=== PATIENT | female | born 1970 | race African-American/Black ===

== ENCOUNTER 2017-06-11 18:09 | Inpatient (IN) | payer OTHER ==
[~2017-06-11] VITALS: Ht 162.6 cm; Wt 100.7 kg
[2017-06-11] MEDS ORDERED: METH40TA (18:20)
[2017-06-11] MEDS ORDERED: LISI5TAB45 (18:20)
--- NOTE | 2017-06-11 18:20 | NUR ---
AAOX3, CAME TO ER C/O MIDSTERNAL NON RADIATING CHEST PAIN, SUDDEN ONSET AROUND 2 PM TODAY. SKIN IS WARM AND DRY. RESP IS EVEN AND UNLABORED WITH NAD NOTED. DR VELÁZQUEZ AT BS FOR EVAL. PLACED ON MONITOR. WILL CONTINUOUSLY MONITOR THE PATIENT.
[2017-06-11] MEDS ORDERED: ONDANSETRON HCL/PF 4 MG/2 ML VIAL ONE (18:49)
[2017-06-11] MEDS ORDERED: MORPHINE SULFATE INJ 4 MG/ML DISP.SYRIN ONE ×2 (18:50→20:03)
[2017-06-11] MEDS ORDERED: ASPIRIN 81 MG TAB.CHEW ONE (18:50)
[2017-06-11 18:52] LABS: RED BLOOD CELL COUNT(AUTO) 4.08 MIL/uL (4.0-5.2)
[2017-06-11 18:54] LABS: BASOPHILS # (AUTO) 0.3 /CMM (0.0-0.2); BASOPHILS % (AUTO) 2.5 % (0.0-2.0); EOSINOPHILS % (AUTO) 0.1 % (0.0-6.0); HEMATOCRIT 39 % (33-45); HEMOGLOBIN 13.1 g/dL (11.5-14.8); LYMPHOCYTES # (AUTO) 2.1 /CMM (0.8-4.8); LYMPHOCYTES % (AUTO) 16.7 % (20.0-44.0); MEAN CORPUSCULAR HEMOGLOBIN 32 PG (26.0-33.0); MEAN CORPUSCULAR HGB CONC 34 g/dl (31.0-36.0); MEAN CORPUSCULAR VOLUME 95 fL (82-100); MONOCYTES # (AUTO) 0.5 /CMM (0.1-1.30); NEUTROPHILS # (AUTO) 9.7 /CMM (1.8-8.9); NEUTROPHILS % (AUTO) 76.7 % (43.0-81.0); PLATELET COUNT (AUTO) 265 /CMM (150-450); RDW COEFFICIENT OF VARIATION 13.2 (11.5-15.0); WHITE BLOOD COUNT (AUTO) 12.6 K/uL (4.3-11.0)
[2017-06-11] MEDS ORDERED: ASPIRIN 81 MG TAB.CHEW PO ONE (19:00)
[2017-06-11] MEDS ORDERED: ONDANSETRON HCL/PF 4 MG/2 ML VIAL IVP ONE (19:00)
[2017-06-11] MEDS ORDERED: MORPHINE SULFATE INJ 2 MG/ML DISP.SYRIN IV ONE ×2 (19:00→20:00)
[2017-06-11 19:04] LABS: CALCIUM, SERUM 9.3 mg/dL (8.5-10.1); CREATININE 1.5 mg/dL (0.6-1.3); POTASSIUM 4.3 mmol/L (3.5-5.1)
[2017-06-11 19:09] LABS: PROTHROMBIN TIME 10.4 SECS (9.5-12.7)
--- NOTE | 2017-06-11 19:10 | NUR ---
RECEIVED REPORT FROM BESSIE SUAREZ FOR JUAN. PT APPEARS TO BE COMFORTABLE AT THIS TIME.
--- NOTE | 2017-06-11 19:30 | NUR ---
CALLED RADIOLOGY FOR F/U CXRAY
[2017-06-11 19:32] LABS: TROPONIN I 0.43 ng/mL (0.00-0.056)
--- NOTE | 2017-06-11 19:41 | NUR ---
RADIOLOGY AT BEDSIDE FOR CXR
[2017-06-11] MEDS ORDERED: NTG 50 MG/D5W250 ML BOTTL 250 ML IV ONE ×2 (20:00→20:03)
--- NOTE | 2017-06-11 20:15 | NUR ---
ASSIGNED TELE BED 311-1
--- NOTE | 2017-06-11 20:20 | NUR ---
CALLED HOUSE SUP FOR ICU BED.
--- NOTE | 2017-06-11 20:38 | NUR ---
ASSIGNED ICU BED 256
--- NOTE | 2017-06-11 20:58 | NUR ---
REPORT GIVEN TO CLINIC COORDINATOR FOR ICU BED 256
[2017-06-11] MEDS ORDERED: ENOXAPARIN SODIUM 100 MG/ML DISP.SYRIN SQ SCH (21:30)
[2017-06-11] MEDS ORDERED: ZOLPIDEM TARTRATE 5 MG TABLET PO PRN (21:30)
[2017-06-11] MEDS ORDERED: Z GUARD REMEDY 2 OZ OINT TP PRN (21:30)
[2017-06-11] MEDS ORDERED: ONDANSETRON HCL/PF 4 MG/2 ML VIAL IVP PRN (21:30)
[2017-06-11] MEDS ORDERED: MORPHINE SULFATE INJ 2 MG/ML DISP.SYRIN IV PRN (21:30)
[2017-06-11] MEDS ORDERED: NITROPRUSSIDE SODIUM 50 MG in IV D5W 250 ML IV PRN (21:30)
[2017-06-11] MEDS ORDERED: ACETAMINOPHEN 325 MG TABLET PO PRN (21:30)
[2017-06-11 21:31] VITALS: BP 102/75
[2017-06-11 22:04] VITALS: BP 159/102
[2017-06-11 22:30] VITALS: BP 165/112
[2017-06-11] MEDS ORDERED: QUETIAPINE FUMARATE 100 MG TABLET PO SCH (22:30)
[2017-06-11] MEDS ORDERED: ENOXAPARIN SODIUM 100 MG/ML DISP.SYRIN SQ ONE (22:53)
[2017-06-11] MEDS ORDERED: QUETIAPINE FUMARATE 100 MG TABLET ONE (22:53)
[2017-06-11 23:11] VITALS: BP 150/106
[2017-06-11] MEDS ORDERED: NTG 50 MG/D5W250 ML BOTTL 250 ML IV PRN (23:30)
[2017-06-12] VITALS (25 sets, daily range): BP systolic 108–140; BP diastolic 17–89
--- NOTE | 2017-06-12 00:11 | NUR ---
PATIENT IS REFUSING 06/11/172115 EKG ORDER. DOESN'T WANT TO BE BOTHERED. [employer] NOTIFIED.
[2017-06-12] MEDS ORDERED: MORPHINE SULFATE INJ 2 MG/ML DISP.SYRIN IV PRN (01:30)
[2017-06-12 04:45] LABS: BASOPHILS % (AUTO) 0.2 % (0.0-2.0); EOSINOPHILS # (AUTO) 0.1 /CMM (0.0-0.7); EOSINOPHILS % (AUTO) 1.3 % (0.0-6.0); HEMATOCRIT 35 % (33-45); HEMOGLOBIN 11.4 g/dL (11.5-14.8); LYMPHOCYTES % (AUTO) 29.9 % (20.0-44.0); MEAN CORPUSCULAR HEMOGLOBIN 32 PG (26.0-33.0); MEAN CORPUSCULAR HGB CONC 33 g/dl (31.0-36.0); MEAN CORPUSCULAR VOLUME 96 fL (82-100); MONOCYTES # (AUTO) 0.6 /CMM (0.1-1.30); NEUTROPHILS # (AUTO) 6.4 /CMM (1.8-8.9); NEUTROPHILS % (AUTO) 62.6 % (43.0-81.0); PLATELET COUNT (AUTO) 211 /CMM (150-450); RDW COEFFICIENT OF VARIATION 14.1 (11.5-15.0); RED BLOOD CELL COUNT(AUTO) 3.59 MIL/uL (4.0-5.2); WHITE BLOOD COUNT (AUTO) 10.2 K/uL (4.3-11.0)
[2017-06-12 04:59] LABS: ALBUMIN 3.2 g/dL (3.4-5.0); BILIRUBIN,TOTAL 0.3 mg/dL (0.2-1.0); CALCIUM, SERUM 8.6 mg/dL (8.5-10.1); CREATININE 1.2 mg/dL (0.6-1.3); MAGNESIUM 2.1 mg/dL (1.8-2.4); PHOSPHORUS 3.3 mg/dL (2.5-4.9); POTASSIUM 4.8 mmol/L (3.5-5.1); TOTAL PROTEIN, SERUM 7.5 g/dL (6.4-8.2)
[2017-06-12 05:19] LABS: THYROID STIMULATING HORMONE 0.431 uIU/mL (0.358-3.74)
--- NOTE | 2017-06-12 05:20 | NUR ---
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 C/O MIDSTERNAL CHEST PAIN WITHOUT ANY RADIATION. CHEST PAIN IS MILD 2/10.PT IS AWAKE, ALERT, ORIENTED, BUT NONCOMPLIANT, UNCOOPERATIVE AND ANXIOUS AT TIMES. PT IS ON O2 2L VIA N/C. LUNGS CLEAR. SCOPE-SR. REMAINS ON NTG DRIP FOR CHEST PAIN. TROPONIN LEVEL WENT UP FROM 1.9 TO 4.354. PT REFUSED EKG, AND A.M. BATH.FROM TIME TO TIME PULLS OUT BP CUFF. PT DOES NOT WANT TO BE DISTURBED. VOIDS SUFFICIENT AMT. OF URINE. NO BM. WILL CONTINUE CLOSE MONITORING.
[2017-06-12] MEDS ORDERED: HEPARIN INFUSION/D5W 500 ML IV PRN (06:00)
[2017-06-12] MEDS ORDERED: HEPARIN SODIUM, PORCINE 5000 UNITS/1 ML VIAL IV ONE (06:00)
[2017-06-12] MEDS ORDERED: HEPARIN SODIUM, PORCINE 5000 UNITS/1 ML VIAL ONE (06:03)
--- NOTE | 2017-06-12 06:40 | NUR ---
IMMIGRATION JUDGE STARTED HEPARIN DRIP PER HOSPITAL PROTOCOL 1000 UNITS/HOUR AFTER BOLUS HEPARIN 6000 UNITS. NEXT PTT AT 12.30 P.M. PT IS SLEEPING DOES NOT WANT TO BE DISTURBED, NONCOMPLIANT. VSS, AFEBRILE. MINIMAL CHEST PAIN.
[2017-06-12] MEDS: ISOSORBIDE DINITRATE (20MG) 20 MG TABLET PO SCH ×2 (07:00→08:58)
[2017-06-12] MEDS ORDERED: PANTOPRAZOLE 40 MG TABLET.DR PO SCH (07:30)
[2017-06-12] MEDS ORDERED: LISINOPRIL (5MG) 5 MG TABLET PO SCH (09:00)
[2017-06-12] MEDS ORDERED: METOPROLOL TARTRATE 50 MG TABLET PO SCH ×2 (09:00→12:00)
[2017-06-12] MEDS ORDERED: ASPIRIN EC 81 MG TABLET.DR PO SCH (09:00)
[2017-06-12] MEDS ORDERED: METHADONE HCL 10 MG TABLET PO SCH (09:00)
[2017-06-12] MEDS ORDERED: ENOXAPARIN SODIUM 100 MG/ML DISP.SYRIN SQ SCH (09:00)
[2017-06-12] MEDS ORDERED: ASPIRIN 81 MG TAB.CHEW PO SCH (09:00)
[2017-06-12] MEDS ORDERED: METHADONE HCL (40MG) 40 MG TABLET.SOL PO SCH (09:00)
[2017-06-12 12:38] LABS: TROPONIN I 5.066 ng/mL (0.00-0.056)
[2017-06-12 13:32] LABS: MAGNESIUM 2.1 mg/dL (1.8-2.4); PHOSPHORUS 3.4 mg/dL (2.5-4.9)
--- NOTE | 2017-06-12 14:19 | NUR ---
LIBRARY MEDIA TECHNICIAN; AMA PT IS REQUESTING TO LEAVE AMA. DISCUSSED THE RISK OF LEAVING SINCE PT HAS ELEVATED TROP AND PER SENIOR CLINICIAN NEEDS CARDIAC CATH. PT UNDERSTANDS AND STATES "ILL GO SEE MY PRIMARY DOCTOR. REPORTS GIVEN REGARDING LAB RESULTS. PT REFUSES ANY DISCHARGE INSTRUCTIONS. Addendum: 06/12/17 at 1421 by MICHAEL LOZANO RN DR[address] FIGUEREDO MADE AWARE.
--- NOTE | 2017-06-12 14:30 | NUR ---
ENGAGEMENT MANAGER; D/C IV HEPLOCK DISCONTINUED WITH CATH TIP INTACT. PT ARM BANDS REMOVED. WALKED PT DOWN TO LOBBY. PT KATHERINE ANY SOB OR CHEST PAIN.
== END 2017-06-12 14:30 | disposition left against medical advice (07) | DRG 816 ==
LOC: ER 18:11 → ICU 20:48
PROVIDERS: ADMIT Nurse Practitioner Acute Care; ATTEND Nurse Practitioner Acute Care
DX: T40.5X1A Poisoning by cocaine, accidental (unintentional), initial encounter (principal); I21.4 Non-ST elevation (NSTEMI) myocardial infarction; N17.0 Acute kidney failure with tubular necrosis; I24.9 Acute ischemic heart disease, unspecified; D68.59 Other primary thrombophilia; E66.01 Morbid (severe) obesity due to excess calories; E03.9 Hypothyroidism, unspecified; E11.9 Type 2 diabetes mellitus without complications; E78.00 Pure hypercholesterolemia, unspecified; E78.5 Hyperlipidemia, unspecified; G89.4 Chronic pain syndrome; I10 Essential (primary) hypertension; M79.7 Fibromyalgia; Z82.49 Family history of ischemic heart disease and other diseases of the circulatory system; F17.200 Nicotine dependence, unspecified, uncomplicated; E05.90 Thyrotoxicosis, unspecified without thyrotoxic crisis or storm; F14.10 Cocaine abuse, uncomplicated; Y92.009 Unspecified place in unspecified non-institutional (private) residence as the place of occurrence of the external cause
CPT/HCPCS: 36415; 71010-TC; 80048-TC; 80053-TC; 80061-TC; 83735-TC; 84100-TC; 84443-TC; 84484-TC; 85025-TC; 85730-TC; 87081-TC; A4606; J1644; J1650; J2270; J2405; J3490; Z7610